=== PATIENT | female | born 1985 | race African-American/Black ===

== ENCOUNTER 2017-03-11 06:42 | Emergency (ER) | payer SELFPAY ==
[~2017-03-11] VITALS: Ht 167.6 cm; Wt 100.0 kg
[~2017-03-11 06:42] MED LIST: CIPRO 500MG TA500 MG PO; LANSINOH FOR BR1 OIN TP; LEVAQUIN 5500 MG/TA1 PO; LORTAB 5/500 501 TAB; LORTAB 7.5/5001 TAB PO; MOTRIN 600600 MG/TAB PO; NO HOME MEDICATIONS; PERCOCET 325 MG1 TA2 PO; PHENERGAN 25 TA25 MG PO; PHENERGAN25 MG RC; PREDNISONE10 MG PO; PRENATAL1 TA1 PO; PREPARATION H30 GM RC; TUCKS50% TP; TYLENOL 325MG325 MG PO; ZOFRAN 4MG T4 MG/TAB PO
[2017-03-11 06:46] VITALS: BP 137/77; TEMP 98
[2017-03-11] MEDS ORDERED: PROAIR HFA0.09 MG/AC IH (08:34)
[2017-03-11] MEDS ORDERED: PHENERGAN W/CO120 M1 PO (08:34)
[2017-03-11] MEDS ORDERED: ZITHROMAX Z PA250 MG PO (08:34)
[2017-03-11] MEDS ORDERED: PREDNISONE20 MG PO (08:34)
[2017-03-11 09:10] VITALS: PULSE 78
== END 2017-03-11 09:11 | disposition home or self-care (01) ==
LOC: COL.ER 06:42
DX: J20.9 Acute bronchitis, unspecified (principal); G43.909 Migraine, unspecified, not intractable, without status migrainosus; Z90.49 Acquired absence of other specified parts of digestive tract
CPT/HCPCS: J1885